=== PATIENT | female | born 2000 | race Caucasian/White ===

== ENCOUNTER 2021-12-07 16:20 | Emergency (ER) | payer SELFPAY ==
[2021-12-07 16:47] VITALS: BP 120/81; PULSE 88; RESP 16; TEMP 36.2; O2SAT 100
--- NOTE | 2021-12-07 16:49 | PC.NURSE ---
Patient stated upset with visitor policy, told KIKE Dubon that she is leaving. Patient then walked out of the hospital with her male friend.
== END 2021-12-07 17:40 | disposition left against medical advice (07) ==
DX: S81.851A Open bite, right lower leg, initial encounter (principal); W54.0XXA Bitten by dog, initial encounter
CPT/HCPCS: 99199

== ENCOUNTER 2021-12-10 15:41 | Emergency (ER) | payer SELFPAY ==
[2021-12-10 16:04] VITALS: BP 157/83; PULSE 76; RESP 18; TEMP 36.9; O2SAT 100
== END 2021-12-10 16:44 | disposition left against medical advice (07) ==
DX: Z53.21 Procedure and treatment not carried out due to patient leaving prior to being seen by health care provider (principal)
CPT/HCPCS: 99199

== ENCOUNTER 2022-03-16 16:35 | Emergency (ER) | payer BC, SELFPAY ==
[2022-03-16 16:40] VITALS: BP 111/76; PULSE 77; RESP 16; TEMP 36.3; O2SAT 100
--- NOTE | 2022-03-16 17:44 | ED.WOUNDLAC ---
HPI - Wound/Laceration General Chief Complaint: Wound/Laceration Stated Complaint: cut wrist on mirror Time Seen by Provider: 03/16/22 16:54 History of Present Illness HPI narrative: 21-year-old female presents the emergency room for evaluation of a laceration to the right wrist. Patient states prior to arrival mirror accidentally broke, and a shard clearance cutter the wrist. Tetanus is up-to-date. Related Data Allergies Allergy/AdvReac Type Severity Reaction Status Date / Time No Known Allergies Allergy Mild Unverified 03/27/10 17:18 Review of Systems Review of Systems: CONSTITUTIONAL: Denies fever, chills, or sweats. EYES: Denies visual changes, redness, or discharge. ENT: Denies rhinorrhea, congestion, sore throat, or otalgia. CARDIOVASCULAR: Denies chest pain, palpitations, or edema. RESPIRATORY: Denies cough or dyspnea. GASTROINTESTINAL: Denies abdominal pain, nausea, vomiting, or diarrhea. GENITOURINARY: Denies dysuria or hematuria. SKIN: Laceration to right wrist MUSCULOSKELETAL: Denies back pain, joint pain, or myalgia. NEUROLOGIC: Denies headache, numbness, dizziness, or weakness. PSYCHIATRIC: Denies anxiety or depression. Exam Narrative: GENERAL: Well-appearing, well-nourished, no physical limitations, and in no acute distress. HEAD: Normocephalic, atraumatic. EYES: Conjunctivae normal, PERRLA and EOMI. ENT: External nose normal, Nares clear, no rhinorrhea or epistaxis. Mucous membranes moist. Oropharynx without tonsillar hypertrophy exudate or other lesions. External ears normal, bilateral TMs normal bilaterally NECK: Supple. No meningeal signs. No adenopathy or masses. No carotid bruits or JVD CHEST: Clear to auscultation. No respiratory distress. No wheezes rales or rhonchi. No tenderness. HEART: Regular rate and rhythm. No murmur heard. Normal peripheral pulses. EXTREMITIES: Normal range of motion. No edema. No clubbing or cyanosis. Right wrist: Full range of motion, no joint laxity SKIN: 7-1/2 cm irregularly shaped laceration anterior side right wrist. NEURO: No focal deficits. Alert and oriented x3. MAEW. CN's II-XI intact bilaterally, normal gait PSYCH: Cooperative. Normal mood and affect. Course Vital Signs Vital signs: Vital Signs Temperature 36.3 C L 03/16/22 16:40 Pulse Rate 77 03/16/22 16:40 Respiratory Rate 16 03/16/22 16:40 Blood Pressure 111/76 03/16/22 16:40 Pulse Oximetry 100 03/16/22 16:40 Oxygen Delivery Room Air 03/16/22 16:40 Temperature 36.3 C L 03/16/22 16:40 Pulse Rate 77 03/16/22 16:40 Respiratory Rate 16 03/16/22 16:40 Blood Pressure 111/76 03/16/22 16:40 Pulse Oximetry 100 03/16/22 16:40 Oxygen Delivery Room Air 03/16/22 16:40 Procedures Laceration Laceration 1: Date: 03/16/22 Time: 17:46 Site: hand Side (If applicable): right Size (cm): 7.5 Description: flap Depth: simple, single layer Local Anesthetic: lidocaine 1% and with epi Amount of anesthesia used (mL): 10 Pre-repair: irrigated ====== Skin Level ====== Skin layer closed with: nylon Size (cm): 5-0 Number of sutures: 14 Technique: simple, interrupted ====== Subcutaneous Layer ====== ====== Muscle Layer ====== ====== Tendon Layer ====== Discharge Plan Discharge Clinical Impression: Laceration Patient Disposition: Home, Self-Care Condition: Stable Instructions: Antibiotic Form, Laceration (ED) Additional Instructions: Tylenol ibuprofen as needed for pain. Take antibiotics to prevent infection. Sutures come out in 10 to 14 days. Keep wound clean and dry. Monitor for signs of infection which include redness, swelling, increased pain, and purulent drainage. Prescriptions: New cephalexin 500 mg capsule 500 mg PO Q8H 7 Days Qty: 21 0RF Follow-up/Referrals: PHYSICIAN NOT ON STAFF,NONSTAFF [Primary Care Provider] - Time of Disposition:
== END 2022-03-16 17:56 | disposition home or self-care (01) ==
PROVIDERS: Emergency Provider Nurse Practitioner Family
DX: S61.511A Laceration without foreign body of right wrist, initial encounter (principal); W25.XXXA Contact with sharp glass, initial encounter
CPT/HCPCS: 12002; 99283